=== PATIENT | female | born 1945 | race Caucasian/White ===

== ENCOUNTER 2016-05-08 08:01 | Inpatient (IN) | payer MEDICARE ==
[~2016-05-08] VITALS: Ht 170.2 cm; Wt 69.7 kg
[2016-05-08] MEDS ORDERED: ONDANSETRON 4 MG VIAL ONE (09:14)
[2016-05-08] MEDS ORDERED: DILAUDID 1 MG/ML AMP ONE ×2 (09:15→10:07)
[2016-05-08] MEDS ORDERED: DILAUDID 1 MG/ML AMP IV ONE (11:25)
[2016-05-08] MEDS ORDERED: ONDANSETRON 4 MG VIAL IV PUSH ONE (11:25)
[2016-05-08] MEDS ORDERED: OXYCODONE/APAP 5/325 TAB PO PRN ×2 (11:25)
[2016-05-08] MEDS ORDERED: OXYCODONE/APAP 5/325 TAB ONE (13:38)
[2016-05-08] MEDS ORDERED: MAG HYDROX 30 ML UDC PO PRN (14:05)
[2016-05-08] MEDS ORDERED: ACETAMINOPHEN 325 MG TAB PO PRN (14:05)
[2016-05-08] MEDS ORDERED: SALINE FLUSH 10 ML FLUSH PRN (14:05)
[2016-05-08] MEDS ORDERED: ONDANSETRON 4 MG VIAL IV PRN (14:05)
[2016-05-08] MEDS ORDERED: BISACODYL EC 5 MG TAB PO PRN (14:05)
[2016-05-08] MEDS ORDERED: BISACODYL 10 MG SUPP RECTAL PRN (14:05)
[2016-05-08 15:17] VITALS: BP_SYST 148; BP_SYST 170; RESP 18; TEMP 98.2; Ht 170.2 cm; Wt 69.7 kg
[2016-05-08] MEDS ORDERED: DILAUDID 1 MG/ML AMP IV PRN (15:55)
[2016-05-08 17:09] VITALS: RESP 20
[2016-05-08] MEDS: NISOLDIPINE PO SCH (17:36)
[2016-05-08] MEDS: [UNRECOGNIZED DRUG - REMARK] XX SCH ×2 (17:36→19:32)
[2016-05-08] MEDS: NICOTINE 21 MG/24 HR TRANSDERM SCH (17:39)
[2016-05-08] MEDS: POLYETHYLENE GLYCOL 17 GM PACKET PO SCH (17:39)
[2016-05-08] MEDS: PANTOPRAZOLE 40 MG TAB PO SCH (17:40)
[2016-05-08] MEDS: Losartan 50 MG TAB PO SCH (17:40)
[2016-05-08] MEDS: FLUTICASONE PROPIONATE 0.05% TOPICAL SCH (19:33)
[2016-05-08] MEDS: SALINE FLUSH 10 ML FLUSH SCH (19:54)
[2016-05-08 20:05] VITALS: BP_SYST 154; RESP 18; TEMP 98.1
[2016-05-08] MEDS: DUONEB INH SCH ×2 (20:26→23:00)
[2016-05-08] MEDS: NEB-BROVANA 15 MCG/2 ML INH SCH (20:26)
[2016-05-08] MEDS: NEB-BUDESONIDE 0.5 MG INH SCH (20:26)
[2016-05-08] MEDS ORDERED: GABAPENTIN 100 MG CAP PO SCH (21:00)
[2016-05-08 23:17] VITALS: BP_SYST 121; RESP 18; TEMP 98.4
[2016-05-09] MEDS ORDERED: MISSING DOSE XX ONE (02:25)
[2016-05-09] MEDS: CYCLOBENZAPRINE 10 MG TAB PO PRN ×2 (02:33→10:27)
[2016-05-09 03:27] VITALS: BP_SYST 139; RESP 18; TEMP 97.7
[2016-05-09] MEDS ORDERED: SODIUM CHLORIDE 0.9% FLUSH BAG 500 ML IV SCH (06:00)
[2016-05-09] MEDS: PANTOPRAZOLE 40 MG TAB PO SCH (06:48)
[2016-05-09 07:00] VITALS: BP_SYST 125; RESP 18; TEMP 98.4
[2016-05-09] MEDS: [UNRECOGNIZED DRUG - REMARK] XX SCH (08:00)
[2016-05-09] MEDS: DUONEB INH SCH ×3 (08:33→14:29)
[2016-05-09] MEDS: NEB-BUDESONIDE 0.5 MG INH SCH (08:33)
[2016-05-09] MEDS: NEB-BROVANA 15 MCG/2 ML INH SCH (08:33)
[2016-05-09] MEDS: FLUTICASONE PROPIONATE 0.05% TOPICAL SCH (09:00)
[2016-05-09] MEDS: POLYETHYLENE GLYCOL 17 GM PACKET PO SCH (09:00)
[2016-05-09] MEDS: NISOLDIPINE PO SCH (09:00)
[2016-05-09] MEDS ORDERED: ENOXAPARIN 40 MG/0.4 ML SYR SUBQ SCH (09:00)
[2016-05-09] MEDS: SALINE FLUSH 10 ML FLUSH SCH (09:24)
[2016-05-09] MEDS: NICOTINE 21 MG/24 HR TRANSDERM SCH (09:24)
[2016-05-09] MEDS: Losartan 50 MG TAB PO SCH (09:25)
[2016-05-09 11:39] VITALS: BP_SYST 115; RESP 18; TEMP 98.6
[2016-05-09 16:23] VITALS: BP_SYST 115; RESP 18; TEMP 98.6
[2016-05-12] MEDS ORDERED: ESTRADIOL 42.5 GM VAG SCH (09:00)
== END 2016-05-09 16:37 | disposition home or self-care (01) | DRG 199 ==
LOC: CT 08:01 → OBSVTOIN 14:09 → 3NT 14:09 → ENPENDDIS 14:09
PROVIDERS: ADMIT Internal Medicine; ATTEND Internal Medicine
PROC: 0W9930Z Drainage of Right Pleural Cavity with Drainage Device, Percutaneous Approach (ICD-10-PCS; principal; 2016-05-08)
DX: J95.811 Postprocedural pneumothorax (principal); J96.01 Acute respiratory failure with hypoxia; C34.90 Malignant neoplasm of unspecified part of unspecified bronchus or lung; R07.9 Chest pain, unspecified; J44.9 Chronic obstructive pulmonary disease, unspecified; Z72.0 Tobacco use; I10 Essential (primary) hypertension; F41.9 Anxiety disorder, unspecified; Z85.89 Personal history of malignant neoplasm of other organs and systems; G89.4 Chronic pain syndrome; Z86.73 Personal history of transient ischemic attack (TIA), and cerebral infarction without residual deficits; I25.10 Atherosclerotic heart disease of native coronary artery without angina pectoris; Z80.1 Family history of malignant neoplasm of trachea, bronchus and lung; Z80.3 Family history of malignant neoplasm of breast
CPT/HCPCS: 32405; 71010; 71020; 77012; 80048; 82040; 83735; 84100; 85025; 88307; 88341; 88342; 94640; 94799; 99222; 99223; 99233; 99238